=== PATIENT | male | born 1955 | race Caucasian/White ===

== ENCOUNTER → 2018-05-08 | Day surgery (SDC) | payer BC ==
[~2018-05-08] MED LIST: Lactated Ringers 1,000 ML IV SCH; Propofol 200 MG/20 ML SDV IV ONE
--- NOTE | 2018-05-11 08:38 | OR ---
DATE OF OPERATION: 05/08/2018 PREOPERATIVE DIAGNOSIS: FOLLOW UP POLYPS. POSTOPERATIVE DIAGNOSIS: FOLLOW UP POLYPS. SURGEON: Sincere Borden MD PROCEDURE: FULL-LENGTH COLONOSCOPY. ANESTHESIA: ASSET PROTECTION GREETER. COMPLICATIONS: None. SPECIMEN: None. FINDINGS: 1. Full-length colonoscopy. 2. Mild sigmoid diverticulosis. RECOMMENDATIONS: Followup colonoscopy in 10 years. INDICATIONS: Mr. Lagunas is a 62-year-old with a history of prior colonoscopy and polyp removal. He is due for a followup in that regard. DESCRIPTION OF PROCEDURE: The patient was prepped and draped and placed in the left lateral decubitus position. A lubricated Olympus colonoscope was inserted and with ease advanced to the cecum. We were able to directly visualize the ileocecal valve and appendiceal orifice. The bowel prep was excellent. Upon withdrawal of the scope, throughout the entire colon, I could find no signs of any polyps, mass, ulceration, bleeding sites, vascular abnormalities, or signs of colitis. No signs of any polyp recurrence. The patient noted to have a few diverticula in the sigmoid area, minimal in severity. Rectal vault appeared benign. Retroflexion of the scope in the rectum was unremarkable. Air was suctioned. Scope was removed without complication. HEATHER/WILLIAM /[id number]
== END ==
LOC: CC.SDS 09:07
PROVIDERS: ATTEND Family Medicine
DX: Z12.11 Encounter for screening for malignant neoplasm of colon (principal); K57.30 Diverticulosis of large intestine without perforation or abscess without bleeding; M19.90 Unspecified osteoarthritis, unspecified site; I10 Essential (primary) hypertension; E78.5 Hyperlipidemia, unspecified; E55.9 Vitamin D deficiency, unspecified; Z79.899 Other long term (current) drug therapy; Z86.010 Personal history of colon polyps; Z98.890 Other specified postprocedural states
CPT/HCPCS: J2704; J7120

== ENCOUNTER → 2020-03-03 | Day surgery (SDC) | payer BC ==
[~2020-03-03] MED LIST changes: +Ketamine 200 MG/20 ML MDV IV ONE
--- NOTE | 2020-03-03 17:33 | OR ---
DATE OF OPERATION: 03/03/2020 PREOPERATIVE DIAGNOSIS: HEMATOCHEZIA. POSTOPERATIVE DIAGNOSIS: HEMATOCHEZIA. SURGEON: Sincere Borden MD PROCEDURE: DIAGNOSTIC COLONOSCOPY WITH SNARE POLYPECTOMY X1. ANESTHESIA: MAC. COMPLICATIONS: None. SPECIMEN: Small tubular adenoma, rectosigmoid junction. FINDINGS: 1. Full-length colonoscopy. 2. Minimal sigmoid diverticulosis. 3. Small tubular adenoma, rectosigmoid junction. 4. Perianal hemorrhoid disease. RECOMMENDATIONS: Medical followup with Dario Garcia for routine followup colonoscopy in 5 years. INDICATIONS: Mr. Lagunas has a recent colonoscopy within 2 or 3 years. He had been having a little bright red blood at times with stools. Dario sent him for diagnostic scope. DESCRIPTION OF PROCEDURE: The patient was prepped and draped, placed in the left lateral decubitus position. A lubricated Olympus colonoscope was inserted and easily advanced to the cecum. It was difficult to see in the cecal pouches. We could get right up alongside the ileocecal valve. It was hard to visualize the entire pouch, but grossly no abnormalities were seen. The patient was very tortuous throughout this pouch area. Upon withdrawal, the cecum, ascending and transverse colons appeared completely benign as did the descending colon. The patient does have very minimal sigmoid diverticular disease and no inflammatory changes seen. I did not find any worrisome polyps, masses, ulceration, or bleeding sites. No vascular abnormalities or signs of colitis. In the rectosigmoid junction at around 25 cm, the patient did have a small stalked adenoma we removed with a snare and suctioned into polyp trap #1. The rectal vault itself appeared benign. Retroflexion did confirm some perianal hemorrhoid disease. Air was then suctioned, scope removed without complication. HEATHER/WILLIAM /[id number]
== END ==
LOC: CC.SDS 10:10
PROVIDERS: ATTEND Family Medicine
DX: D12.7 Benign neoplasm of rectosigmoid junction (principal); I10 Essential (primary) hypertension; K57.30 Diverticulosis of large intestine without perforation or abscess without bleeding; K64.9 Unspecified hemorrhoids; E66.9 Obesity, unspecified; Z68.32 Body mass index [BMI] 32.0-32.9, adult; Z79.82 Long term (current) use of aspirin; Z79.899 Other long term (current) drug therapy; Z98.890 Other specified postprocedural states
CPT/HCPCS: 45385; J2704; J7120

== ENCOUNTER 2025-01-09 17:16 | Emergency (ER) | payer MEDICARE, BC ==
[2025-01-09 18:00] LABS: BASOPHILS ABSOLUTE AUTO 0.01 10^3/uL (0.00-0.50); BASOPHILS PERCENT AUTO 0.3 % (0-1); EOSINOPHILS ABSOLUTE AUTO 0.32 10^3/uL (0.00-1.50); EOSINOPHILS PERCENT AUTO 9.4 % (0-6); HEMATOCRIT 32.9 % (42.0-52.0); HEMOGLOBIN 11.3 g/dL (14.0-18.0); LYMPHOCYTES ABSOLUTE AUTO 0.83 10^3/uL (0.60-5.00); LYMPHOCYTES PERCENT AUTO 24.3 % (24-44); MEAN CORPUSCULAR HEMOGLOBIN 31.7 pg (27.0-32.0); MEAN CORPUSCULAR HGB CONC 34.3 g/dL (32.0-36.0); MEAN CORPUSCULAR VOLUME 92.2 fL (83.0-97.0); MONOCYTES ABSOLUTE AUTO 0.38 10^3/uL (0.00-1.50); MONOCYTES PERCENT AUTO 11.1 % (0-10); NEUTROPHILS ABSOLUTE AUTO 1.87 x10^3/uL (1.80-8.00); NEUTROPHILS PERCENT AUTO 54.9 % (41-71); PLATELET COUNT,PLT 155 10^3/uL (150-400); RED BLOOD CELL COUNT 3.57 x10^6/uL (4.50-6.00); WHITE BLOOD CELL COUNT,WBC 3.4 10^3/uL (4.0-11.0)
[2025-01-09] MEDS: Ibuprofen 200 MG Tab PO ONE (18:03)
[2025-01-09 18:06] LABS: APPEARANCE,URINE CLEAR (CLEAR); BILIRUBIN,URINE NEGATIVE (NEGATIVE); COLOR,URINE YELLOW (YELLOW); GLUCOSE,URINE NEGATIVE (NEGATIVE); KETONES,URINE NEGATIVE (NEGATIVE); LEUKOCYTE ESTERASE,URINE NEGATIVE (NEGATIVE); NITRITE,URINE NEGATIVE (NEGATIVE); OCCULT BLOOD,URINE TRACE-INTACT (NEGATIVE); PH,URINE 5.5 (4.5-8.0); PROTEIN,URINE 100 mg/dL (NEGATIVE); UROBILINOGEN,URINE 0.2 EU/dL (0.2-1.0)
[2025-01-09 18:15] LABS: ALBUMIN 3.6 g/dL (3.4-5.0); BILIRUBIN TOTAL 0.4 mg/dL (0.0-1.0); C-REACTIVE PROTEIN 1.59 mg/dL (<=0.50); CALCIUM 9.2 mg/dL (8.4-10.1); CREATININE 1.8 mg/dL (0.7-1.3); EST CRCL DRUG DOSING (CG) 34.95 mL/min; POTASSIUM,K 4.2 mEq/L (3.5-5.0); PROTEIN TOTAL,TP 7.4 g/dL (6.4-8.2)
[2025-01-09 18:16] LABS: BACTERIA,URINE NOT SEEN /HPF (NOT SEEN); WBC,URINE 0-5 /HPF (0-5)
[2025-01-09] MEDS: Sodium Chloride 0.9% 1,000 ML IV ONE (18:28)
[2025-01-09 18:37] LABS: CORONAVIRUS COVID-19 NAA NEGATIVE (NEGATIVE); INFLUENZA A NAA NEGATIVE (NEGATIVE); INFLUENZA B NAA NEGATIVE (NEGATIVE); RESPIRATORY SYNCYTIAL VIR NAA NEGATIVE (NEGATIVE)
== END 2025-01-09 19:36 | disposition home or self-care (01) ==
LOC: CC.ED 17:16
DX: B34.9 Viral infection, unspecified (principal); I10 Essential (primary) hypertension; E78.00 Pure hypercholesterolemia, unspecified; Z79.899 Other long term (current) drug therapy; Z79.82 Long term (current) use of aspirin
CPT/HCPCS: 0241U; 36415; 71046; 80053; 81001; 83605; 85025; 86140; 87040; 96360; 99283; 99283-25; A9270-GY; J7030

== ENCOUNTER 2025-08-17 10:52 | Day surgery (SDC) | payer MEDICARE, BC ==
[2025-08-17] MEDS: Lactated Ringers 1,000 ML IV SCH (11:22)
[2025-08-17] MEDS ORDERED: Midazolam 1 MG/ML 2 ML SDV ONE (11:35)
[2025-08-17] MEDS ORDERED: fentaNYL 50 MCG/ML SDV ONE (11:35)
[2025-08-17] MEDS ORDERED: Ketamine 200 MG/20 ML MDV ONE (11:35)
[2025-08-17] MEDS ORDERED: Flumazenil 0.1 MG/ML 5 ML MDV ONE (11:35)
[2025-08-17] MEDS ORDERED: Propofol 200 MG/20 ML SDV ONE (11:35)
== END 2025-08-17 12:36 | disposition home or self-care (01) ==
LOC: CC.SDS 10:52
PROVIDERS: ATTEND Family Medicine
DX: Z12.11 Encounter for screening for malignant neoplasm of colon (principal); D12.3 Benign neoplasm of transverse colon; K57.30 Diverticulosis of large intestine without perforation or abscess without bleeding; I10 Essential (primary) hypertension; E78.5 Hyperlipidemia, unspecified; Z79.899 Other long term (current) drug therapy
CPT/HCPCS: 00811; J2250; J2704; J3010; J3490; J7120